=== PATIENT | female | born 1965 | race Caucasian/White ===

== ENCOUNTER 2017-06-04 13:46 | Emergency (ER) | payer BC, OTHER ==
[~2017-06-04] VITALS: Ht 157.5 cm; Wt 99.0 kg
[2017-06-04 13:56] VITALS: BP 193/89; PULSE 85; RESP 16; TEMP 98.9; O2SAT 99
[2017-06-04] MEDS ORDERED: HYZA100T2 PO (14:27)
[2017-06-04] MEDS ORDERED: SODIUM CHLORIDE 0.9% FLUSH 10 ML FLUSH IV FLUSH PRN (14:30)
[2017-06-04] MEDS ORDERED: SODIUM CHLOR 0.9% 1000 ML INJ 1,000 ML IV ONE (14:30)
[2017-06-04] MEDS ORDERED: ONDANSETRON HCL 4 MG/2 ML VIAL IV PUSH ONE (14:30)
[2017-06-04] MEDS ORDERED: KETOROLAC TROMETHAMINE 30 MG/ML (IVP) VIAL IV PUSH ONE (14:30)
--- NOTE | 2017-06-04 14:31 | PD ---
HPI Chief Complaint: Flank/Kidney Pain Time Seen by Provider: 14:28 Travel History International Travel<30 days: No Contact w/Intl Traveler<30days: No Traveled to known affect area: No History of Present Illness HPI 52-year-old female patient with history of previous kidney stones, presents to the ER today with left lower quadrant pains that started at around 11 AM, got worse, is now radiating to the left flank area. Pain is currently rated a 10 out of 10. She does not know any exacerbating or alleviating factors. She had been into see her doctor and was told that she has blood in her urine as well. She is been nauseous and vomiting. Modifying Factors: None Associated Signs & Symptoms: Sharp left lower quadrant abdominal pains with radiation to the left flank, nausea and vomiting Risk Factors: History of kidney stones PFSH Past Medical History Cardiovascular Problems: Yes (htn on meds) ?: Not Social History Tobacco Use: No Allergies-Medications (Allergen,Severity, Reaction): Coded Allergies: No Known Allergies (Unverified , 06/04/17) Reported Meds & Prescriptions Reported Meds & Active Scripts Active Reported Hyzaar (Losartan-Hydrochlorothiazide) 100-12.5 Mg Tab 1 Tab PO DAILY Review of Systems Except as stated in HPI: all other systems reviewed are Neg Physical Exam Narrative GENERAL: Well-developed middle age female patient currently in moderate distress. Awake and oriented 3. SKIN: Focused skin assessment warm/dry. HEAD: Atraumatic. Normocephalic. EYES: Pupils equal and round. No scleral icterus. No injection or drainage. ENT: No nasal bleeding or discharge. Mucous membranes pink and moist. NECK: Trachea midline. No JVD. Supple. CARDIOVASCULAR: Regular rate and rhythm. No murmur appreciated. RESPIRATORY: No accessory muscle use. Clear to auscultation. Breath sounds equal bilaterally. GASTROINTESTINAL: Abdomen soft, mild left pelvic tenderness without guarding or rebound, nondistended. Hepatic and splenic margins not palpable. BACK: No CVA tenderness. No rash. No point tenderness on palpation of the spine. MUSCULOSKELETAL: No obvious deformities. No clubbing. No cyanosis. No edema. NEUROLOGICAL: Awake and alert. No obvious cranial nerve deficits. Motor grossly within normal limits. Normal speech. PSYCHIATRIC: Appropriate mood and affect; insight and judgment normal. Data Data Last Documented VS Vital Signs Date Time Temp Pulse Resp B/P (MAP) Pulse Ox O2 Delivery O2 Flow Rate FiO2 06/04/17 15:02 75 18 195/92 (126) 100 Room Air 06/04/17 13:56 98.9 Orders Orders Urinalysis - C+S If Indicated (06/04/17 13:54) Complete Blood Count With Diff (06/04/17 14:17) Comprehensive Metabolic Panel (06/04/17 14:17) Iv Access Insert/Monitor (06/04/17 14:17) Ecg Monitoring (06/04/17 14:17) Oximetry (06/04/17 14:17) Sodium Chloride 0.9% Flush (Ns Flush) (06/04/17 14:30) Sodium Chlor 0.9% 1000 Ml Inj (Ns 1000 M (06/04/17 14:30) Ketorolac Inj (Toradol Inj) (06/04/17 14:30) Ondansetron Inj (Zofran Inj) (06/04/17 14:30) Ct Abd/Pel W/O Iv Contrast (06/04/17 14:28) Urine Culture (06/04/17 14:25) Ed Discharge Order (06/04/17 15:42) Labs Laboratory Tests Test 06/04/17 14:25 06/04/17 14:55 Urine Color YELLOW Urine Turbidity CLEAR Urine pH 6.0 Urine Specific [place] 1.015 Urine Protein NEG mg/dL Urine Glucose (UA) NEG mg/dL Urine Ketones NEG mg/dL Urine Occult Blood TRACE Urine Nitrite NEG Urine Bilirubin NEG Urine Leukocyte Esterase SMALL Urine RBC 0-3 /hpf Urine WBC 25-49 /hpf Urine WBC Clumps OCC Urine Squamous Epithelial Cells > 8 /hpf Urine Bacteria OCC /hpf Microscopic Urinalysis Comment CULTURE INDICATED Blood Urea Nitrogen 16 MG/DL Creatinine 0.74 MG/DL Random Glucose 103 MG/DL Total Protein 8.0 GM/DL Albumin 4.2 GM/DL Calcium Level 9.4 MG/DL Alkaline Phosphatase 86 U/L Aspartate Amino Transf (AST/SGOT) 38 U/L Alanine Aminotransferase (ALT/SGPT) 26 U/L Total Bilirubin 0.6 MG/DL Sodium Level 135 MEQ/L Potassium Level 4.0 MEQ/L Chloride Level 100 MEQ/L Carbon Dioxide Level 23.9 MEQ/L Anion Gap 11 MEQ/L Estimat Glomerular Filtration Rate 82 ML/MIN MDM Medical Decision Making Medical Screen Exam Complete: Yes Emergency Medical Condition: Yes Medical Record Reviewed: Yes Interpretation(s) Laboratory Tests Test 06/04/17 14:25 06/04/17 14:55 Urine Leukocyte Esterase SMALL (NEG) Urine WBC 25-49 /hpf (0-5) Urine WBC Clumps OCC (NONE) Urine Squamous Epithelial Cells > 8 /hpf (0-5) Urine Bacteria OCC /hpf (NONE) Aspartate Amino Transf (AST/SGOT) 38 U/L (15-37) Sodium Level 135 MEQ/L (136-145) Estimat Glomerular Filtration Rate 82 ML/MIN (>89) Last 24 hours Impressions Abdomen/Pelvis CT 06/04/17 1428 Signed Impressions: Service Date/Time: Friday, June 04, 2017 15:14 - CONCLUSION: 1. Distal left ureteral calculus at the level of the ureterovesicular junction with mild hydronephrosis and hydroureter. This measures 4-5 mm in size. 2. Multiple bilateral renal calculi left greater than right. Grabiel Hidalgo MD Differential Diagnosis Left flank pain, nausea and vomiting, left lower quadrant abdominal pains: Renal colic versus muscular skeletal versus pyelonephritis/UTI versus other acute intra-abdominal processes Narrative Course UA shows RBCs and WBCs concerning for UTI. Her CAT scan shows a 4-5 mm stone in the distal left UVJ. At this point, my plan would be to treat her with antibiotics and symptomatically relief or pain and have her follow-up with urology. Drink plenty of fluids. Return for any worsening in symptoms, pain, fevers, vomiting, and as needed. The plan has been discussed with her and she states understanding. Diagnosis Primary Impression: UTI (urinary tract infection) Additional Impression: Renal colic on left side Med/Other Pt SpecificInfo: Prescription(s) given Scripts Ciprofloxacin (Cipro) 500 Mg Tab 500 MG PO BID for Infection for 7 Days, #14 TAB 0 Refills Prov: Alisson Burch MD 06/04/17 Oxycodone-Acetaminophen (Percocet) 5-325 mg Tab 1-2 TAB PO Q6H Y for PAIN, #15 TAB 0 Refills Prov: Alisson Burch MD 06/04/17 Ondansetron Odt (Zofran Odt) 4 Mg Tab 4 MG SL Q6HR Y for Nausea/Vomiting, #7 TAB 0 Refills Prov: Alisson Burch MD 06/04/17 Ibuprofen (Ibuprofen) 600 Mg Tab 600 MG PO Q6H Y for Pain/Inflammation, #20 TAB 0 Refills Prov: Alisson Burch MD 06/04/17 Disposition: 01 DISCHARGE HOME Condition: Stable Alisson Burch MD Jun 04, 2017 14:31
[2017-06-04 14:39] LABS: BILIRUBIN, URINE NEG (NEG); BLOOD, URINE TRACE (NEG); GLUCOSE,URINE NEG (NEG); KETONE, URINE NEG (NEG); NITRITE,URINE NEG (NEG); URINE LEUKOCYTE ESTERASE SMALL (NEG)
[2017-06-04 14:58] LABS: BACTERIA, URINE OCC /hpf; RBC, URINE 0-3 /hpf (0-3); SQUAMOUS EPITHELIAL CELL URINE > 8 /hpf (0-5); URINE COLOR YELLOW (YELLW/STRAW); WHITE BLOOD CELL CLUMPS OCC
[2017-06-04 15:02] VITALS: BP 195/92; PULSE 75; RESP 18; O2SAT 100
[2017-06-04 15:23] LABS: CHLORIDE 100 MEQ/L (98-107); SODIUM (NA) 135 MEQ/L (136-145)
[2017-06-04 15:26] LABS: CALCIUM 9.4 MG/DL (8.5-10.1)
[2017-06-04 15:27] LABS: ALBUMIN 4.2 GM/DL (3.4-5.0); BICARBONATE 23.9 MEQ/L (21.0-32.0); BLOOD UREA NITROGEN 16 MG/DL (7-18); GLUCOSE,RANDOM 103 MG/DL (74-106)
[2017-06-04 15:28] LABS: AUTOMATED NEUTROPHIL # 7.2 TH/MM3 (1.8-7.7); BASOPHIL # 0.1 TH/MM3 (0-0.2); BASOPHIL % 0.6 % (0.0-2.0); EOSINOPHIL # 0.1 TH/MM3 (0-0.4); HEMOGLOBIN 13.2 GM/DL (11.6-15.3); LYMPH % 13.6 % (9.0-44.0); LYMPHOCYTE # 1.2 TH/MM3 (1.0-4.8); MEAN CELL VOLUME 84.4 FL (80.0-100.0); MEAN CORPUSCULAR HEMOGLOBIN 27.8 PG (27.0-34.0); MEAN CORPUSCULAR HGB CONC 32.9 % (32.0-36.0); MEAN PLATELET VOLUME 8.1 FL (7.0-11.0); MONO % 3.6 % (0.0-8.0); MONOCYTE # 0.3 TH/MM3 (0-0.9); NEUT % 81.2 % (16.0-70.0); PLATELET COUNT 297 TH/MM3 (150-450); RED BLOOD COUNT 4.74 MIL/MM3 (4.00-5.30); RED CELL DISTRIBUTION WIDTH 13.2 % (11.6-17.2); WHITE BLOOD COUNT 8.9 TH/MM3 (4.0-11.0)
[2017-06-04 15:30] LABS: ALT (GPT) 26 U/L (10-53); AST (GOT) 38 U/L (15-37); CREATININE 0.74 MG/DL (0.50-1.00); GLOMERULAR FILTRATION RATE 82 ML/MIN (>89)
[2017-06-04 15:31] LABS: TOTAL BILIRUBIN ADULT 0.6 MG/DL (0.2-1.0)
[2017-06-04 15:33] LABS: ALKALINE PHOSPHATASE 86 U/L (45-117)
--- NOTE | 2017-06-04 15:34 | RADRPT ---
EXAM DATE/TIME: 06/04/2017 15:14 [facility] COMPARISON: No previous studies available for comparison. INDICATIONS : Left flank and pelvic pain. Evaluate for renal stone. ORAL CONTRAST: No oral contrast ingested. RADIATION DOSE: 24.50 CTDIvol (mGy) MEDICAL HISTORY : Hypertension. Renal calculi. SURGICAL HISTORY : Oopherectomy. ENCOUNTER: Initial ACUITY: 1 day PAIN SCALE: 4/10 LOCATION: Left pelvis flank TECHNIQUE: Volumetric scanning of the abdomen and pelvis was performed. Using automated exposure control and ad justment of the mA and/or kV according to patient size, radiation dose was kept as low as reasonably achievable to obtain optimal diagnostic quality images. DICOM format image data is available electro nically for review and comparison. FINDINGS: LOWER LUNGS: The visualized lower lungs are clear. LIVER: Homogeneous density without lesion. There is no dilation of the biliary tree. No calcified gallston es. SPLEEN: Normal size without lesion. PANCREAS: Within normal limits. KIDNEYS: Normal in size and shape. There are multiple small nonobstructing right renal calculi. There are mult iple left renal calculi measuring up to 1 cm. There is mild left hydronephrosis with dilatation of le ft ureter down to the level of the distal ureteral calculus at the level of the ureterovesicular junc tion. This measures approximately 4-5 mm in size. ADRENAL GLANDS: Within normal limits. VASCULAR: There is no aortic aneurysm. BOWEL/MESENTERY: There is a small hiatal hernia. The stomach, small bowel, and colon demonstrate no acute abnormality. There is no free intraperitoneal air or fluid. ABDOMINAL WALL: Within normal limits. RETROPERITONEUM: There is no lymphadenopathy. BLADDER: No wall thickening or mass. REPRODUCTIVE: Within normal limits. INGUINAL: There is no lymphadenopathy or hernia. MUSCULOSKELETAL: Within normal limits for patient age. CONCLUSION: 1. Distal left ureteral calculus at the level of the ureterovesicular junction with mild hydronephros is and hydroureter. This measures 4-5 mm in size. 2. Multiple bilateral renal calculi left greater than right. Grabiel Hidalgo MD on June 04, 2017 at 15:29 Board Certified Radiologist. This report was verified electronically.
[2017-06-04] MEDS ORDERED: ZOFR4TAB3 SL (15:45)
[2017-06-04] MEDS ORDERED: PERC5TAB12 PO (15:45)
[2017-06-04] MEDS ORDERED: CIPR-9 PO (15:45)
[2017-06-04] MEDS ORDERED: IBUP-232 PO (15:45)
[2017-06-04 16:31] VITALS: BP 169/52
== END 2017-06-04 16:34 | disposition home or self-care (01) ==
LOC: PHED 13:46
DX: N39.0 Urinary tract infection, site not specified (principal); B96.89 Other specified bacterial agents as the cause of diseases classified elsewhere; N13.2 Hydronephrosis with renal and ureteral calculous obstruction; R11.2 Nausea with vomiting, unspecified; I10 Essential (primary) hypertension; Z79.899 Other long term (current) drug therapy
CPT/HCPCS: 74176; 80053; 81001; 85025; 87086; 96361; 96374; 96375; 99285; J1885; J2405; J7030